=== PATIENT | male | born 1950 ===

== ENCOUNTER 2018-02-12 23:20 | Observation (INO) | payer MEDICARE, SELFPAY ==
[2018-02-12 23:31] VITALS: BMI 33.6
--- NOTE | 2018-02-12 23:37 | ED PDOC ---
Arrival/HPI - General Time Seen by Provider: 02/12/18 23:22 Historian: Patient - History of Present Illness Narrative History of Present Illness (Text): 02/12/18 23:33 Warren Trevino is a 67 year old male, whose past medical history includes diabetes, hypertension, liver cirrhosis, esophageal varices, and hyperlipidemia , who presents to the emergency department accompanied by spouse complaining upper abdominal discomfort after eating at 17:00 today. Patient reports associated nausea, vomiting, and back discomfort. Patient denies any fevers, chills, chest pain, shortness of breath, diarrhea, back pain, neck pain, urinary symptoms, headache, dizziness, or any other complaint. PMD: Dr. Powell Symptom Onset: Gradual Symptom Course: Unchanged Activities at Onset: Light Context: Home Past Medical History - Provider Review Nursing Documentation Reviewed: Yes - Cardiac Hx Hypertension: Yes - Pulmonary Hx Respiratory Disorders: No - Neurological Hx Neurological Disorder: No - HEENT Hx HEENT Disorder: No - Renal Hx Renal Disorder: No - Endocrine/Metabolic Hx Diabetes Mellitus Type 2: Yes - Hematological/Oncological Hx Blood Disorders: No - Integumentary Hx Dermatological Disorder: No - Musculoskeletal/Rheumatological Hx Musculoskeletal Disorders: No Hx Falls: No - Gastrointestinal Hx Gastrointestinal Disorders: Yes Hx Esophageal Varices: Yes Hx Gastritis: Yes Other/Comment: ? Liver Cirrhosis - Genitourinary/Gynecological Hx Genitourinary Disorders: No - Psychiatric Hx Psychophysiologic Disorder: No Hx Substance Use: No - Anesthesia Hx Anesthesia: No Family/Social History - Physician Review Nursing Documentation Reviewed: Yes Family/Social History: Unknown Family HX Smoking Status: Never Smoked Hx Alcohol Use: No Hx Substance Use: No Allergies/Home Meds Allergies/Adverse Reactions: Allergies No Known Allergies Allergy (Unverified 02/12/18 23:31) Home Medications: Home Meds Medication Instructions Recorded Confirmed Carvedilol 6.25 mg PO BID 08/01/14 08/01/14 Cholecalciferol [Vitamin D 1000 IU] 50,000 iu PO QWK 08/01/14 08/01/14 Clotrimazole 1% Cream [Lotrimin 1% 1 applic TOP BID 08/01/14 08/01/14 CREAM] Insulin Aspart [Novolog Flexpen] 15 units SC TID 08/01/14 08/01/14 Insulin Detemir [Levemir Flexpen] 30 unit SC HS 08/01/14 08/01/14 Lactulose 10 gm PO TID 08/01/14 08/01/14 Lidocaine 2 patch TP DAILY PRN 08/01/14 08/01/14 Linaclotide [Linzess] 145 mcg PO DAILY 08/01/14 08/01/14 Liraglutide [Victoza] 1.8 mg SC DAILY 08/01/14 08/01/14 Omeprazole 40 mg PO DAILY 08/01/14 08/01/14 Propranolol HCl 10 mg PO TID 08/01/14 08/01/14 Ramipril 10 mg PO DAILY 08/01/14 08/01/14 Rifaximin [Xifaxan] 550 mg PO BID 08/01/14 08/01/14 Spironolactone 25 mg PO DAILY 08/01/14 08/01/14 Review of Systems - Physician Review All systems were reviewed & negative as marked: Yes - Review of Systems Constitutional: Normal. absent: Fevers Eyes: Normal ENT: Normal Respiratory: Normal. absent: SOB, Cough Cardiovascular: Normal. absent: Chest Pain Gastrointestinal: Abdominal Pain, Nausea, Vomiting. absent: Diarrhea Genitourinary Male: Normal. absent: Dysuria, Frequency, Hematuria, Urinary Output Changes Musculoskeletal: Back Pain. absent: Neck Pain Skin: Normal. absent: Rash Neurological: Normal. absent: Headache, Dizziness Endocrine: Normal Hemo/Lymphatic: Normal Psychiatric: Normal Physical Exam Vital Signs Reviewed: Yes Vital Signs Temp Pulse Resp BP Pulse Ox 02/13/18 04:58 98.0 F 82 17 131/75 98 02/13/18 02:33 78 17 154/67 H 96 02/13/18 00:09 97.9 F 81 17 115/72 97 Temperature: Afebrile Blood Pressure: Normal Pulse: Regular Respiratory Rate: Normal Appearance: Positive for: Well-Appearing, Non-Toxic, Comfortable Pain Distress: None Mental Status: Positive for: Alert and Oriented X 3 - Systems Exam Head: Present: Atraumatic, Normocephalic Pupils: Present: PERRL Extroacular Muscles: Present: EOMI Conjunctiva: Present: Normal Mouth: Present: Moist Mucous Membranes Neck: Present: Normal Range of Motion. No: Meningeal Signs, MIDLINE TENDERNESS , Paraspinal Tenderness Respiratory/Chest: Present: Clear to Auscultation, Good Air Exchange. No: Respiratory Distress, Accessory Muscle Use Cardiovascular: Present: Regular Rate and Rhythm, Normal S1, S2. No: Murmurs Abdomen: Present: Tenderness (epigastric/ruq). No: Distention, Peritoneal Signs Back: Present: Normal Inspection. No: CVA Tenderness, Midline Tenderness, Paraspinal Tenderness Upper Extremity: Present: Normal Inspection. No: Cyanosis, Edema Lower Extremity: Present: Normal Inspection. No: Edema Neurological: Present: GCS=15, CN II-XII Intact, Speech Normal Skin: Present: Warm, Dry, Normal Color. No: Rashes Psychiatric: Present: Alert, Oriented x 3, Normal Insight, Normal Concentration Medical Decision Making ED Course and Treatment: 02/12/18 23:33 Impression: 67 year old male complaining of upper abdominal discomfort, nausea, vomiting, and back discomfort since 17:00 today. Plan: -- US Abdomen -- EKG -- CXR -- Labs, cardiac enzymes, lipase -- IV fluids -- Zofran -- Pepcid -- Reassess and disposition Progress Notes: Reviewed EKG, NSR at 70 bpm[address] Non-specific ST/T wave changes. 02/13/18 00:56 CXR reviewed, shows no acute processes. 02/13/18 02:18 US Abdomen shows: Limitations: Overlying bowel gas. Liver: Suboptimally visualized. Lobulated contour. Fatty infiltration. 3.3 x 3.0 x 3.9 cm hypo-to isoechoic mass. Additional masses not demonstrated likely due to suboptimal visualization. No intrahepatic ductal dilation. Gallbladder: No gallstones. No wall thickening. No pericholecystic fluid. No sonographic Khan's sign. Common bile duct: No dilatation. No stones. Pancreas: Obscured by overlying bowel gas. Kidneys: Normal echogenicity. No hydronephrosis. Spleen: No splenomegaly. Aorta: Not visualized. Inferior vena cava: Not visualized. Free fluid: No significant free fluid. Other findings: TIPS. IMPRESSION: 1. Liver mass, indeterminate but present on previous CT examination. Clinical correlation is needed. 2. Cirrhosis. 3. Incidental/non-acute findings are described above. CT Abdomen and Pelvis ordered. 02/13/18 03:33 CT Abdomen and Pelvis shows: Lung bases: Minimal atelectasis. Heart: Mild cardiomegaly. ABDOMEN: Liver: Lobulated contour. Few irregular hypodense lesions, grossly stable. Gallbladder and bile ducts: Calcified gallstones. No significant ductal dilation. Pancreas: No ductal dilation. No mass. Spleen: No splenomegaly. Adrenals: No mass. Kidneys and ureters: No mass. No hydronephrosis. Stomach and bowel: No definite mural thickening. Few minimally distended loops of small bowel, likely ileus. PELVIS: Appendix: Normal caliber. No inflammation. Bladder: Unremarkable. Reproductive: Unremarkable as visualized. ABDOMEN and PELVIS: Intraperitoneal space: No significant fluid collection. No free air. Bones/joints: Degenerative changes of spine. Chronic L5 pars defects. No acute fracture. Soft tissues: Mild gynecomastia. Vasculature: Minimal atherosclerotic disease. No aneurysm. Lymph nodes: No pathologically enlarged lymph nodes. Other findings: TIPS. Coils within left upper quadrant. IMPRESSION: 1. Cirrhosis with liver lesions, stable. 2. Cholelithiasis. 3. Incidental/non-acute findings are described above. 02/13/18 04:04 Case discussed with medical receptionist biller furnishings conservator and Dr. Camacho, who are aware and agrees with plan. Pt will go to [facility] observation for biliary colic and intractable abdominal pain under the hospitalist service. - Lab Interpretations Lab Results: 02/12/18 23:48 02/12/18 23:48 Lab Results 02/12/18 23:48: WBC 6.7, RBC 3.63, Hgb 12.9 L, Hct 35.2 L, MCV 97.0, MCH 35.5 H , MCHC 36.6, RDW 13.2, Plt Count 104 L, MPV 11.8 H 02/12/18 23:48: Sodium 138, Potassium 5.1 H, Chloride 105, Carbon Dioxide 23, Anion Gap 15, BUN 26 H, Creatinine 1.1, Est GFR ( Amer) > 60, Est GFR ( Non-Af Amer) > 60, Random Glucose 322 H* D, Calcium 9.1, Total Bilirubin 1.5 H, AST 64 H D, ALT 48, Alkaline Phosphatase 231 H, Lactate Dehydrogenase 658, Total Creatine Kinase 112, Troponin I < 0.01, Total Protein 7.5, Albumin 3.3, Globulin 4.1, Albumin/Globulin Ratio 0.8 L, Lipase 501 H 02/12/18 23:48: PT 13.8 H, INR 1.21 H, APTT 27.1 I have reviewed the lab results: Yes - RAD Interpretation Radiology Orders: 02/12/18 23:33 CHEST PORTABLE [RAD] Stat 02/12/18 23:38 ABDOMEN COMPLETE [US] Stat 02/13/18 02:21 ABD & PELVIS IV CONTRAST ONLY [CT] Stat Restrike Hammer Operator: ED Physician, Radiologist - EKG Interpretation Interpreted by ED Physician: Yes Type: 12 lead EKG - Medication Orders Current Medication Orders: Discontinued Medications Famotidine (Pepcid) 20 mg IVP STAT STA Stop: 02/12/18 23:35 Last Admin: 02/12/18 23:53 Dose: 20 mg IVP Administration Document 02/12/18 23:53 IT (Rec: 02/12/18 23:53 [place] [facility] [id number] Charges for Administration # of IVP Administrations 1 Heparin Sodium (Porcine) (Heparin) 5,000 units SC Q12 JOSE R PRN Reason: Protocol Last Admin: 02/13/18 10:44 Dose: 5,000 units Subcutaneous Administrations Document 02/13/18 10:44 MANIL (Rec: 02/13/18 10:44 MANIL [facility] [id number] Injection Site MAR Injection Site Umbilicus Charges for Administration # of Subcutaneous Administrations 1 Sodium Chloride (Sodium Chloride 0.9%) 1,000 mls @ 100 mls/hr IV .Q10H JOSE R Last Admin: 02/12/18 23:53 Dose: 100 mls/hr eMAR Start Stop Document 02/12/18 23:53 IT (Rec: 02/12/18 23:53 IT [facility] [id number] Intravenous Solution Start Date 02/12/18 Start Time 23:53 Sodium Chloride (Sodium Chloride 0.45%) 1,000 mls @ 60 mls/hr IV .[id number] JOSE R Last Admin: 02/13/18 04:49 Dose: 60 mls/hr eMAR Start Stop Document 02/13/18 04:49 IT (Rec: 02/13/18 04:49 IT [facility] [id number] Intravenous Solution Start Date 02/13/18 Start Time 04:49 Insulin Human Regular (Humulin R High) 0 units SC Q6 JOSE R PRN Reason: Protocol Last Admin: 02/13/18 12:23 Dose: 2 units MAR Blood Glucose Document 02/13/18 12:23 MANIL (Rec: 02/13/18 12:23 MANIL [id number]) Blood Glucose Finger Stick Blood Glucose (70-120) 190 Subcutaneous Administrations Document 02/13/18 12:23 MANIL (Rec: 02/13/18 12:23 MANIL [id number]) Injection Site MAR Injection Site Right Arm Charges for Administration # of Subcutaneous Administrations 1 Morphine Sulfate (Morphine) 2 mg IVP STAT STA Stop: 02/13/18 00:35 Last Admin: 02/13/18 00:42 Dose: 2 mg IVP Administration Document 02/13/18 00:42 IT (Rec: 02/13/18 00:42 IT [facility] [id number] Charges for Administration # of IVP Administrations 1 Morphine Sulfate (Morphine) 4 mg IVP STAT STA Stop: 02/13/18 03:52 Last Admin: 02/13/18 04:49 Dose: 4 mg MAR Pain Assessment Document 02/13/18 04:49 IT (Rec: 02/13/18 04:49 IT [facility] [id number] Pain Reassessment Is this a pain reassessment? No Sleep Is patient sleeping during reassessment? No Presence of Pain Presence of Pain Yes Pain Scale Used Pain Scale Used Numeric Location Upper or Lower Lower Pain Location Body Site Abdomen IVP Administration Document 02/13/18 04:49 IT (Rec: 02/13/18 04:49 IT [facility] [id number]) Charges for Administration # of IVP Administrations 1 Morphine Sulfate (Morphine) 2 mg IVP Q4H PRN PRN Reason: Pain, severe (8-10) Morphine Sulfate (Morphine) 1 mg IVP Q6H PRN PRN Reason: Pain, moderate (4-7) Ondansetron HCl (Zofran Inj) 4 mg IVP ONCE ONE Stop: 02/12/18 23:35 Last Admin: 02/12/18 23:53 Dose: 4 mg IVP Administration Document 02/12/18 23:53 IT (Rec: 02/12/18 23:53 IT [facility] [id number]) Charges for Administration # of IVP Administrations 1 Ondansetron HCl (Zofran Inj) 4 mg IVP Q4H PRN PRN Reason: Nausea/Vomiting Pantoprazole Sodium (Protonix Inj) 40 mg IVP DAILY JOSE R Last Admin: 02/13/18 10:45 Dose: 40 mg IVP Administration Document 02/13/18 10:45 MANIL (Rec: 02/13/18 10:45 MANIL [facility] [id number] Charges for Administration # of IVP Administrations 1 - Scribe Statement The provider has reviewed the documentation as recorded by the Scribe Megan Delgado Provider Scribe Attestation: All medical record entries made by the Scribe were at my direction and personally dictated by me. I have reviewed the chart and agree that the record accurately reflects my personal performance of the history, physical exam, medical decision making, and the department course for this patient. I have also personally directed, reviewed, and agree with the discharge instructions and disposition. Disposition/Present on Arrival - Present on Arrival Any Indicators Present on Arrival: No History of DVT/PE: No History of Uncontrolled Diabetes: Yes Urinary Catheter: No History of Decub. Ulcer: Yes History Surgical Site Infection Following: None - Disposition Have Diagnosis and Disposition been Completed?: Yes Diagnosis: Abdominal pain, Cholelithiasis Disposition: HOSPITALIZED Disposition Time: 04:18 Patient Plan: Observation Condition: STABLE
[2018-02-12] MEDS ORDERED: Sodium Chloride 0.9% 1,000 ML IV SCH (23:45)
[2018-02-13 00:24] LABS: HEMOGLOBIN 12.9 g/dL (14.0-18.0); MEAN CORPUSCULAR HEMOGLOBIN 35.5 pg (25.0-35.0); MEAN CORPUSCULAR HGB CONC 36.6 g/dl (31.0-37.0); MEAN PLATELET VOLUME 11.8 fl (7.0-11.0); RBC 3.63 10^6/uL (3.5-6.1); RED CELL DISTRIBUTION WIDTH 13.2 % (11.5-14.5); WHITE BLOOD COUNT 6.7 10^3/ul (4.5-11.0)
[2018-02-13 00:33] LABS: INR 1.21 (0.93-1.08); PARTIAL THROMBOPLASTIN TIME 27.1 Seconds (25.1-36.5); PROTHROMBIN TIME 13.8 SECONDS (9.4-12.5)
[2018-02-13] MEDS ORDERED: Morphine 2 mg/2 mL syringe IVP STA (00:34)
[2018-02-13 00:36] LABS: ALB/GLOB RATIO 0.8 (1.1-1.8); ALBUMIN 3.3 g/dL (3.0-4.8); ALT/SGPT 48 U/L (7-56); AST/SGOT 64 U/L (17-59); BLOOD UREA NITROGEN 26 mg/dL (7-21); CALCIUM 9.1 mg/dL (8.4-10.5); GFR AFRICAN-AMERICAN > 60; GFR NON-AFRICAN AMERICAN > 60; LIPASE 501 U/L (23-300)
[2018-02-13 00:38] LABS: TROPONIN I < 0.01 ng/mL
--- NOTE | 2018-02-13 02:17 | US ---
EXAM: US Abdomen Complete CLINICAL HISTORY: 67 years old, male; Pain; Abdominal pain; Generalized; Additional info: Upper abdominal pain TECHNIQUE: Real-time ultrasound of the abdomen (complete) with image documentation. COMPARISON: CT - LIVER PROTOCOL TRIPLE PHASE 2018-01-02 10:43 FINDINGS: Limitations: Overlying bowel gas. Liver: Suboptimally visualized. Lobulated contour. Fatty infiltration. 3.3 x 3.0 x 3.9 cm hypo-to isoechoic mass. Additional masses not demonstrated likely due to suboptimal visualization. No intrahepatic ductal dilation. Gallbladder: No gallstones. No wall thickening. No pericholecystic fluid. No sonographic Khan's sign. Common bile duct: No dilatation. No stones. Pancreas: Obscured by overlying bowel gas. Kidneys: Normal echogenicity. No hydronephrosis. Spleen: No splenomegaly. Aorta: Not visualized. Inferior vena cava: Not visualized. Free fluid: No significant free fluid. Other findings: TIPS. IMPRESSION: 1. Liver mass, indeterminate but present on previous CT examination. Clinical correlation is needed. 2. Cirrhosis. 3. Incidental/non-acute findings are described above.
[2018-02-13] MEDS ORDERED: Iohexol 350 MG/100 ML VIAL ONE (02:52)
--- NOTE | 2018-02-13 03:31 | CT ---
EXAM: CT Abdomen and Pelvis With Intravenous Contrast CLINICAL HISTORY: 67 years old, male; Pain; Abdominal pain TECHNIQUE: Axial computed tomography images of the abdomen and pelvis with intravenous contrast. All CT scans at this facility use one or more dose reduction techniques, viz.: automated exposure control; ma/kV adjustment per patient size (including targeted exams where dose is matched to indication; i.e. head); or iterative reconstruction technique. Coronal and sagittal reformatted images were created and reviewed. CONTRAST: 100 mL of OMNIPAQUE 350 administered intravenously. COMPARISON: CT - LIVER PROTOCOL TRIPLE PHASE 2018-01-02 10:43 FINDINGS: Lung bases: Minimal atelectasis. Heart: Mild cardiomegaly. ABDOMEN: Liver: Lobulated contour. Few irregular hypodense lesions, grossly stable. Gallbladder and bile ducts: Calcified gallstones. No significant ductal dilation. Pancreas: No ductal dilation. No mass. Spleen: No splenomegaly. Adrenals: No mass. Kidneys and ureters: No mass. No hydronephrosis. Stomach and bowel: No definite mural thickening. Few minimally distended loops of small bowel, likely ileus. PELVIS: Appendix: Normal caliber. No inflammation. Bladder: Unremarkable. Reproductive: Unremarkable as visualized. ABDOMEN and PELVIS: Intraperitoneal space: No significant fluid collection. No free air. Bones/joints: Degenerative changes of spine. Chronic L5 pars defects. No acute fracture. Soft tissues: Mild gynecomastia. Vasculature: Minimal atherosclerotic disease. No aneurysm. Lymph nodes: No pathologically enlarged lymph nodes. Other findings: TIPS. Coils within left upper quadrant. IMPRESSION: 1. Cirrhosis with liver lesions, stable. 2. Cholelithiasis. 3. Incidental/non-acute findings are described above.
[2018-02-13] MEDS ORDERED: Morphine 4 mg/ml ISec IVP STA (03:51)
[2018-02-13] MEDS ORDERED: Morphine 2 mg/2 mL syringe IVP PRN ×2 (04:09)
[2018-02-13] MEDS ORDERED: Sodium Chloride 0.45% 1,000 ML IV SCH (04:15)
[2018-02-13 04:59] VITALS: O2SAT 98
[2018-02-13 06:12] VITALS: BP 123/76; PULSE 86; RESP 20; TEMP 96.7
--- NOTE | 2018-02-13 06:21 | CP.PCM.CON ---
History of Present Illness - History of Present Illness History of Present Illness: Surgery Consult note. Dr. Ruffin 67yo M with PMHx of Liver Cirrhosis, portal hypertension s/p TIPS 8yrs ago, DM, HTN, HLD here for evaluation of abdominal pain. Pain located in the epigastric region, described as sharp, intermittent, gassy pain. Radiates to the mid back. Denies ever having similar symptoms in the past. Pain started 2 hours after eating strawberries and fruits, started at 5PM yesterday. Pain associated with nausea and vomiting x3 episodes, non-bilious, non-bloody. Denies any fevers or chills. Last BM yesterday, normal caliber, no blood, non-melanotic. Denies any recent weight loss. No urinary changes. No CP/SOB. No sick contacts. PMHx: Cirrhosis, Portal Hypertension s/p TIPS, DM, HTN, HLD PSHx: TIPS 8 years ago at [facility] Hx: non-contributory Social Hx: Denies current ETOH use, prior abuse, sober 10years. Denies tobacco use. Denies illicit drugs NKDA Review of Systems - Review of Systems All systems: reviewed and no additional remarkable complaints except - Constitutional Constitutional: absent: Chills, Fever - Cardiovascular Cardiovascular: absent: Chest Pain, Dyspnea - Respiratory Respiratory: absent: Dyspnea - Gastrointestinal Gastrointestinal: Abdominal Pain, Nausea, Vomiting. absent: Belching, Diarrhea , Dyspepsia, Hematemesis, Hematochezia, Loose Stools, Melena - Genitourinary Genitourinary: absent: Dysuria - Musculoskeletal Musculoskeletal: Back Pain Past Patient History - Past Medical History & Family History Past Medical History?: Yes Past Family History: Reviewed and not pertinent - Past Social History Smoking Status: Never Smoked Alcohol: None Drugs: Denies - CARDIAC Hx Cardiac Disorders: Yes Hx Hypertension: Yes - PULMONARY Hx Respiratory Disorders: No - NEUROLOGICAL Hx Neurological Disorder: No - HEENT Hx HEENT Problems: No - RENAL Hx Chronic Kidney Disease: No - ENDOCRINE/METABOLIC Hx Endocrine Disorders: Yes Hx Diabetes Mellitus Type 2: Yes - HEMATOLOGICAL/ONCOLOGICAL Hx Blood Disorders: No - INTEGUMENTARY Hx Dermatological Problems: No - MUSCULOSKELETAL/RHEUMATOLOGICAL Hx Musculoskeletal Disorders: Yes Hx Back Pain: Yes Hx Falls: No - GASTROINTESTINAL Hx Gastrointestinal Disorders: Yes Other/Comment: Liver cirrhosis with TIPS. Esophageal varices - GENITOURINARY/GYNECOLOGICAL Hx Genitourinary Disorders: No - PSYCHIATRIC Hx Psychophysiologic Disorder: No Hx Substance Use: No - SURGICAL HISTORY Hx Surgeries: Yes Other/Comment: TIPS - ANESTHESIA Hx Anesthesia: No Meds Allergies/Adverse Reactions: Allergies Allergy/AdvReac Type Severity Reaction Status Date / Time No Known Allergies Allergy Unverified 02/12/18 23:31 - Medications Medications: Current Medications Heparin Sodium (Porcine) (Heparin) 5,000 units SC Q12 JOSE R PRN Reason: Protocol Sodium Chloride (Sodium Chloride 0.45%) 1,000 mls @ 60 mls/hr IV .[id number] [facility] Last Admin: 02/13/18 04:49 Dose: 60 mls/hr Insulin Human Regular (Humulin R High) 0 units SC Q6 JOSE R PRN Reason: Protocol Morphine Sulfate (Morphine) 2 mg IVP Q4H PRN PRN Reason: Pain, severe (8-10) Morphine Sulfate (Morphine) 1 mg IVP Q6H PRN PRN Reason: Pain, moderate (4-7) Ondansetron HCl (Zofran Inj) 4 mg IVP Q4H PRN PRN Reason: Nausea/Vomiting Pantoprazole Sodium (Protonix Inj) 40 mg IVP DAILY [facility] Physical Exam - Constitutional Appears: Well, Non-toxic, No Acute Distress - Head Exam Head Exam: ATRAUMATIC, NORMAL INSPECTION, NORMOCEPHALIC - Eye Exam Eye Exam: EOMI, Normal appearance. absent: Scleral icterus - ENT Exam ENT Exam: Mucous Membranes Moist - Neck Exam Neck exam: Positive for: Normal Inspection - Respiratory Exam Respiratory Exam: NORMAL BREATHING PATTERN. absent: Accessory Muscle Use, Respiratory Distress - Cardiovascular Exam Cardiovascular Exam: RRR. absent: JVD - GI/Abdominal Exam GI & Abdominal Exam: Soft. absent: Distended, Firm, Guarding, Rebound, Rigid, Tenderness Additional comments: soft, non-tender, non-distended. No rebound. No guarding. Negative Khan's sign. - Extremities Exam Extremities exam: Positive for: normal inspection. Negative for: calf tenderness - Back Exam Back exam: NORMAL INSPECTION - Neurological Exam Neurological exam: Alert, Oriented x3 - Psychiatric Exam Psychiatric exam: Normal Affect, Normal Mood - Skin Skin Exam: Dry, Intact, Normal Color, Warm Results - Vital Signs Recent Vital Signs: Last Vital Signs Temp 96.7 F L 02/13/18 05:36 Pulse 86 02/13/18 05:36 Resp 20 02/13/18 05:36 BP 123/76 02/13/18 05:36 Pulse Ox 98 02/13/18 04:58 - Labs Result Diagrams: 02/13/18 06:30 02/13/18 06:30 Labs: Laboratory Results - last 24 hr 02/13/18 05:29 POC Glucose (mg/dL) 159 H Assessment & Plan - Assessment and Plan (Free Text) Assessment: 67yo M with epigastric abdominal pain. - Elevated LFTs; Lipase 500 - CT Abd/Pelvis: calcified gallstones. liver cirrhosis with associated lesion ( stable from previous studies) - US Abd: no evidence of gallstones; No CBD stones noted. No wall thickening. Plan: - f/u GI recs - f/u GGT to r/o biliary pathology - Advance diet as tolerated - No acute plans for surgical intervention warranted at this time Further recs as per Dr. Augustin Iniguez PGY1 surgery pager: [phone]
--- NOTE | 2018-02-13 06:27 | CP.PCM.HP ---
History of Present Illness - History of Present Illness History of Present Illness: Mr. rTevino is a 67 year old male with a past medical history significant for chronic liver disease secondary to alcohol abuse s/p TIPS, liver cirrhosis, IDDM2, HTN and HLD who presents with epigastric cramping that began at 1700 yesterday. Patient reports that he was resting at home when a constant crampy epigastric pain, rated 6/10, with radiation to his back began. He also endorses intermittent nausea with two episodes of NBNB vomiting associated with this pain. He denies ever having this pain in the past. He also denies any correlation to PO intake, body position or bowel movements. He is usually seen at [facility] by a GI doctor there. He denies any fever, chills, headache, changes in his vision, dizziness, dysphagia, chest pain, palpitations, SOB, cough, wheezing, sputum production, diarrhea, constipation, melena, hematochezia , hematemesis, changes in urine output, skin changes, or any numbness/tingling/ weakness of any extremity. PMH: As stated above PSH: TIPS ~10 years ago Family History: Non-contributory Social History: Denies any current tobacco, alcohol or illicit drug use; Lives in [place] Allergies: NKDA Home Medications: As stated above Present on Admission - Present on Admission Any Indicators Present on Admission: No Review of Systems - Review of Systems Review of Systems: As stated in HPI, otherwise negative Past Patient History - Infectious Disease Hx of Infectious Diseases: None - Past Medical History & Family History Past Medical History?: Yes - Past Social History Smoking Status: Never Smoked - CARDIAC Hx Cardiac Disorders: Yes Hx Hypertension: Yes - PULMONARY Hx Respiratory Disorders: No - NEUROLOGICAL Hx Neurological Disorder: No - HEENT Hx HEENT Problems: No - RENAL Hx Chronic Kidney Disease: No - ENDOCRINE/METABOLIC Hx Endocrine Disorders: Yes Hx Diabetes Mellitus Type 2: Yes - HEMATOLOGICAL/ONCOLOGICAL Hx Blood Disorders: No - INTEGUMENTARY Hx Dermatological Problems: No - MUSCULOSKELETAL/RHEUMATOLOGICAL Hx Musculoskeletal Disorders: Yes Hx Back Pain: Yes Hx Falls: No - GASTROINTESTINAL Hx Gastrointestinal Disorders: Yes Other/Comment: Liver cirrhosis with TIPS. Esophageal varices - GENITOURINARY/GYNECOLOGICAL Hx Genitourinary Disorders: No - PSYCHIATRIC Hx Psychophysiologic Disorder: No Hx Substance Use: No - SURGICAL HISTORY Hx Surgeries: Yes Other/Comment: TIPS - ANESTHESIA Hx Anesthesia: No Meds Allergies/Adverse Reactions: Allergies Allergy/AdvReac Type Severity Reaction Status Date / Time No Known Allergies Allergy Unverified 02/12/18 23:31 Physical Exam - Constitutional Appears: Non-toxic, No Acute Distress - Head Exam Head Exam: ATRAUMATIC, NORMOCEPHALIC - Eye Exam Eye Exam: EOMI, Normal appearance, PERRL. absent: Conjunctival injection, Nystagmus, Periorbital swelling, Periorbital tenderness, Scleral icterus Pupil Exam: NORMAL ACCOMODATION, PERRL. absent: Fixed, Irregular, Miosis, Mydriatic, Unequal - ENT Exam ENT Exam: Mucous Membranes Moist, Normal Exam, Normal Oropharynx - Neck Exam Neck exam: Positive for: Full Rom, Normal Inspection. Negative for: Lymphadenopathy, Meningismus, Tenderness, Thyromegaly - Respiratory Exam Respiratory Exam: Clear to Auscultation Bilateral, NORMAL BREATHING PATTERN. absent: Accessory Muscle Use, Chest Wall Tenderness, Decreased Breath Sounds, Prolonged Expiratory Phase, Rales, Rhonchi, Wheezes, Respiratory Distress, Stridor - Cardiovascular Exam Cardiovascular Exam: REGULAR RHYTHM, RRR, +S1, +S2. absent: Bradycardia, Tachycardia, Clicks, Diastolic murmur, Gallop, Irregular Rhythm, JVD, Rubs, +S4 , Systolic Murmur - GI/Abdominal Exam GI & Abdominal Exam: Normal Bowel Sounds, Soft, Tenderness (TTP to epigastric region). absent: Bruit, Diminished Bowel Sounds, Distended, Firm, Guarding, Hernia, Hyperactive Bowel Sounds, Hypoactive Bowel Sounds, Mass, Organomegaly, Pulsatile Mass, Rebound, Rigid - Extremities Exam Extremities exam: Positive for: full ROM, normal capillary refill, normal inspection, pedal pulses present. Negative for: calf tenderness, joint swelling , pedal edema, tenderness - Back Exam Back exam: NORMAL INSPECTION - Neurological Exam Neurological exam: Alert, CN II-XII Intact, Oriented x3 - Psychiatric Exam Psychiatric exam: Normal Affect, Normal Mood - Skin Skin Exam: Dry, Intact, Normal Color, Warm Results - Vital Signs Recent Vital Signs: Last Vital Signs Temp 96.7 F L 02/13/18 05:36 Pulse 86 02/13/18 05:36 Resp 20 02/13/18 05:36 BP 123/76 02/13/18 05:36 Pulse Ox 98 02/13/18 04:58 - Labs Result Diagrams: 02/13/18 06:30 02/12/18 23:48 Labs: Laboratory Results - last 24 hr 02/13/18 05:29 POC Glucose (mg/dL) 159 H Assessment & Plan - Assessment and Plan (Free Text) Assessment: 67 year old male with a past medical history significant for chronic liver disease secondary to alcohol abuse s/p TIPS, liver cirrhosis, IDDM2, HTN and HLD who presents with epigastric cramping that began at 1700 yesterday. Patient was found to have cholelithiasis on CT abdomen/pelvis and abdominal ultrasound. He was also found to have an elevated lipase. Plan: 1. Cholelithiasis -CT Abdomen/Pelvis and Abdominal U/S showed cholelithiasis and stable liver cirrhosis without any dilation of the CBD -NPO Diet -Half NS at 60mls/hr -Morphine 1mg IVP Q6 PRN and 2mg Q4 PRN for moderate and severe pain, respectively -Zofran PRN for N/V -GI and Surgery consulted, all recommendations appreciated 2. History of IDDM2 -SSI-High and Accuchecks Q6 GI Prophylaxis: Protonix DVT Prophylaxis: Heparin Patient seen and case discussed with attending, Dr. Laura Camacho. - Date & Time Date: 02/13/18 Time: 06:29
[2018-02-13 06:41] LABS: BASO # 0.02 K/mm3 (0.0-2.0); BASO % 0.3 % (0.0-3.0); EOS # 0.1 (0.0-0.7); EOS % 1.4 % (1.5-5.0); GRAN # 5.56 (1.4-6.5); HEMOGLOBIN 12.7 g/dL (14.0-18.0); LYMPH # 1.3 (1.2-3.4); LYMPH % 16.4 % (22.0-35.0); MEAN CELL VOLUME 96.7 fl (80.0-105.0); MEAN CORPUSCULAR HEMOGLOBIN 34.6 pg (25.0-35.0); MEAN CORPUSCULAR HGB CONC 35.8 g/dl (31.0-37.0); MEAN PLATELET VOLUME 11.5 fl (7.0-11.0); MONO # 0.9 (0.1-0.6); MONO % 10.9 % (1.0-6.0); RBC 3.67 10^6/uL (3.5-6.1); RED CELL DISTRIBUTION WIDTH 13.2 % (11.5-14.5); WHITE BLOOD COUNT 7.8 10^3/ul (4.5-11.0)
[2018-02-13 07:03] LABS: ALB/GLOB RATIO 0.7 (1.1-1.8); ALT/SGPT 42 U/L (7-56); AST/SGOT 55 U/L (17-59); BLOOD UREA NITROGEN 24 mg/dL (7-21); CALCIUM 8.8 mg/dL (8.4-10.5); GFR AFRICAN-AMERICAN > 60; GFR NON-AFRICAN AMERICAN > 60
[2018-02-13] MEDS: Insulin Reg-HIGH-Coverage SC SCH ×2 (07:47→12:23)
--- NOTE | 2018-02-13 08:37 | CP.PCM.CON ---
History of Present Illness - History of Present Illness History of Present Illness: Asked by hospitalist team for a GI consultation on this patient. 67 year old male with history of DM, HTN, ETOH cirrhosis s/p TIPS who presents to hospital with complaint of sudden onset abdominal pain which began at 5 pm yesterday. Prior to this he was in usual state of health. He describes sharp epigastric abdominal pain, 8/10 intensity which radiated to back and associated with nausea. There did not seem to be any association with food consumption. He otherwise denies vomiting, fever/chills, weight loss, rectal bleeding, diarrhea , sick contacts, or change in bowel habits. He had an EGD/colonoscopy 1 year ago at [facility] [place] which were normal as per patient. He has been following with private hepatolgist Dr. Bowman for known cirrhosis with hepatic lesions. Social history: quit ETOH 10 years ago, non-smoker Family history: reviewed, patient denies history of GI malignancies Review of Systems - Review of Systems Review of Systems: - All other comprehensive 12 point review of systems performed, negative - Cardiovascular Cardiovascular: absent: Acrocyanosis, Chest Pain, Chest Pain at Rest, Chest Pain with Activity, Claudication, Diaphoresis, Dyspnea, Dyspnea on Exertion, Edema, Irregular Heart Rhythm, Pain Radiating to Arm/Neck/Jaw, Leg Edema, Leg Ulcers, Lightheadedness, Orthopnea, Palpitations, Paroxysmal Nocturnal Dyspnea, Pedal Edema, Radiating Pain, Rapid Heart Rate, Slow Heart Rate, Syncope, Other - Respiratory Respiratory: absent: Cough, Dyspnea, Hemoptysis, Dyspnea on Exertion, Wheezing, Snoring, Stridor, Pain on Inspiration, Chest Congestion, Excessive Mucous Production, Change in Mucous Color, Pain with Coughing, Other - Gastrointestinal Gastrointestinal: Abdominal Pain - Musculoskeletal Musculoskeletal: absent: Abnormal Gait, Arthralgias, Atrophy, Back Pain, Deformity, Joint Swelling, Limited Range of Motion, Loss of Height, Muscle Cramps, Muscle Weakness, Myalgias, Neck Pain, Numbness, Radiating Pain into Limb , Stiffness, Tingling, Other - Neurological Neurological: absent: Abnormal Gait, Abnormal Hearing, Abnormal Movements, Abnormal Speech, Behavioral Changes, Burning Sensations, Confusion, Convulsions , Disequilibrium, Dizziness, Numbness, Focal Weakness, Frequent Falls, Headaches , Lack of Coordination, Loss of Vision, Memory Loss, Paresthesias, Radicular Pain, Restless Legs, Sensory Deficit, Syncope, Tingling, Tremor, Vertigo, Weakness, Other Visual Disturbances, Other Past Patient History - Infectious Disease Hx of Infectious Diseases: None - Past Medical History & Family History Past Medical History?: Yes - Past Social History Smoking Status: Never Smoked - CARDIAC Hx Cardiac Disorders: Yes Hx Hypertension: Yes - PULMONARY Hx Respiratory Disorders: No - NEUROLOGICAL Hx Neurological Disorder: No - HEENT Hx HEENT Problems: No - RENAL Hx Chronic Kidney Disease: No - ENDOCRINE/METABOLIC Hx Endocrine Disorders: Yes Hx Diabetes Mellitus Type 2: Yes - HEMATOLOGICAL/ONCOLOGICAL Hx Blood Disorders: No - INTEGUMENTARY Hx Dermatological Problems: No - MUSCULOSKELETAL/RHEUMATOLOGICAL Hx Musculoskeletal Disorders: Yes Hx Back Pain: Yes Hx Falls: No - GASTROINTESTINAL Hx Gastrointestinal Disorders: Yes Other/Comment: Liver cirrhosis with TIPS. Esophageal varices - GENITOURINARY/GYNECOLOGICAL Hx Genitourinary Disorders: No - PSYCHIATRIC Hx Psychophysiologic Disorder: No Hx Substance Use: No - SURGICAL HISTORY Hx Surgeries: Yes Other/Comment: TIPS - ANESTHESIA Hx Anesthesia: No Meds Allergies/Adverse Reactions: Allergies Allergy/AdvReac Type Severity Reaction Status Date / Time No Known Allergies Allergy Unverified 02/12/18 23:31 - Medications Medications: Current Medications Heparin Sodium (Porcine) (Heparin) 5,000 units SC Q12 [facility] PRN Reason: Protocol Sodium Chloride (Sodium Chloride 0.45%) 1,000 mls @ 60 mls/hr IV [id number] [facility] Last Admin: 02/13/18 04:49 Dose: 60 mls/hr Insulin Human Regular (Humulin R High) 0 units SC Q6 JOSE R PRN Reason: Protocol Last Admin: 02/13/18 07:47 Dose: 2 units Morphine Sulfate (Morphine) 2 mg IVP Q4H PRN PRN Reason: Pain, severe (8-10) Morphine Sulfate (Morphine) 1 mg IVP Q6H PRN PRN Reason: Pain, moderate (4-7) Ondansetron HCl (Zofran Inj) 4 mg IVP Q4H PRN PRN Reason: Nausea/Vomiting Pantoprazole Sodium (Protonix Inj) 40 mg IVP DAILY [facility] Physical Exam - Constitutional Appears: Non-toxic, No Acute Distress - Head Exam Head Exam: NORMAL INSPECTION - Eye Exam Eye Exam: EOMI, Normal appearance - ENT Exam ENT Exam: Mucous Membranes Moist - Respiratory Exam Respiratory Exam: Clear to Auscultation Bilateral - Cardiovascular Exam Cardiovascular Exam: REGULAR RHYTHM, +S1, +S2 - GI/Abdominal Exam GI & Abdominal Exam: Normal Bowel Sounds, Soft Additional comments: non tender to palpation in four quadrants no palpable hepato/splenomegaly - Extremities Exam Extremities exam: Positive for: normal inspection - Neurological Exam Neurological exam: Alert, CN II-XII Intact, Oriented x3, Reflexes Normal - Psychiatric Exam Psychiatric exam: Normal Affect, Normal Mood - Skin Skin Exam: Dry, Intact, Normal Color, Warm Results - Vital Signs Recent Vital Signs: Last Vital Signs Temp 96.7 F L 02/13/18 06:00 Pulse 86 02/13/18 06:00 Resp 20 02/13/18 06:00 BP 123/76 02/13/18 06:00 Pulse Ox 98 02/13/18 06:00 - Labs Result Diagrams: 02/13/18 06:30 02/13/18 06:30 Labs: Laboratory Results - last 24 hr 02/13/18 02/13/18 02/13/18 05:29 06:30 06:30 WBC 7.8 RBC 3.67 Hgb 12.7 L Hct 35.5 L MCV 96.7 MCH 34.6 MCHC 35.8 RDW 13.2 Plt Count 100 L MPV 11.5 H Gran % 71.0 H Lymph % (Auto) 16.4 L [place] % (Auto) 10.9 H Eos % (Auto) 1.4 L Baso % (Auto) 0.3 Gran # 5.56 Lymph # (Auto) 1.3 [place] # (Auto) 0.9 H Eos # (Auto) 0.1 Baso # (Auto) 0.02 Sodium 141 Potassium 4.4 Chloride 108 H Carbon Dioxide 24 Anion Gap 14 BUN 24 H Creatinine 1.0 Est GFR ( Amer) > 60 Est GFR (Non-Af Amer) > 60 POC Glucose (mg/dL) 159 H Random Glucose 168 H Calcium 8.8 Total Bilirubin 1.6 H AST 55 ALT 42 Alkaline Phosphatase 201 H Total Protein 7.0 Albumin 3.0 Globulin 4.1 Albumin/Globulin Ratio 0.7 L Assessment & Plan - Assessment and Plan (Free Text) Assessment: DM HTN Cirrhosis s/p TIPS - prior ETOH abuse, sober past [address] / US imaging reviewed by me showing calcified cholelithiasis, normal caliber CBD, stable hepatic necrotic lesions compared to triple phase liver CT from last month Plan: - Advance diet to low sodium diabetic as tolerated - LFTs stable, continue to monitor - Admission MELD 10, patient to follow up with Dr. Bowman (hepatology) after hospital discharge - Continue with oral H2 alise therapy - Follow up surgical recommendations - From GI standpoint ok to discharge patient home with subsequent outpatient follow up. No planned GI intervention, will sign off case. Please reconsult as necessary, thank you.
--- NOTE | 2018-02-13 09:41 | CARD ---
APPROVED REPORT EKG Measurement Heart [id number] <Conclusion> Normal sinus rhythm with sinus arrhythmia Possible Lateral infarct, age undetermined Abnormal ECG
--- NOTE | 2018-02-13 09:50 | RAD ---
HISTORY: abdominal pain COMPARISON: No prior. FINDINGS: LUNGS: Poor inspiration with low lung volumes, crowded bronchovascular markings and mild bibasilar atelectasis. . PLEURA: No significant pleural effusion identified, no pneumothorax apparent. CARDIOVASCULAR: Borderline/ mild cardiomegaly. OSSEOUS STRUCTURES: No significant abnormalities. VISUALIZED UPPER ABDOMEN: Normal. OTHER FINDINGS: None. IMPRESSION: Poor inspiration with low lung volumes, crowded bronchovascular markings and mild bibasilar atelectasis.
--- NOTE | 2018-02-13 14:24 | CP.PCM.DIS ---
<Luz Red - Last Filed: 02/13/18 15:38> Provider - Provider Date of Admission: 02/13/18 04:16 Attending physician: Mohamud Jorgensen MD Primary care physician: Poli Powell Jr, MD Time Spent in preparation of Discharge (in minutes): 40 Hospital Course - Lab Results Lab Results: Most Recent Lab Values WBC 7.8 10^3/ul (4.5-11.0) 02/13/18 06:30 RBC 3.67 10^6/uL (3.5-6.1) 02/13/18 06:30 Hgb 12.7 g/dL (14.0-18.0) L 02/13/18 06:30 Hct 35.5 % (42.0-52.0) L 02/13/18 06:30 MCV 96.7 fl (80.0-105.0) 02/13/18 06:30 MCH 34.6 pg (25.0-35.0) 02/13/18 06:30 MCHC 35.8 g/dl (31.0-37.0) 02/13/18 06:30 RDW 13.2 % (11.5-14.5) 02/13/18 06:30 Plt Count 100 10^3/uL (120.0-450.0) L 02/13/18 06:30 MPV 11.5 fl (7.0-11.0) H 02/13/18 06:30 Gran % 71.0 % (50.0-68.0) H 02/13/18 06:30 Lymph % (Auto) 16.4 % (22.0-35.0) L 02/13/18 06:30 [place] % (Auto) 10.9 % (1.0-6.0) H 02/13/18 06:30 Eos % (Auto) 1.4 % (1.5-5.0) L 02/13/18 06:30 Baso % (Auto) 0.3 % (0.0-3.0) 02/13/18 06:30 Gran # 5.56 (1.4-6.5) 02/13/18 06:30 Lymph # (Auto) 1.3 (1.2-3.4) 05/28/18 06:30 [place] # (Auto) 0.9 (0.1-0.6) H 02/13/18 06:30 Eos # (Auto) 0.1 (0.0-0.7) 02/13/18 06:30 Baso # (Auto) 0.02 K/mm3 (0.0-2.0) 02/13/18 06:30 PT 13.8 SECONDS (9.4-12.5) H 02/12/18 23:48 INR 1.21 (0.93-1.08) H 02/12/18 23:48 APTT 27.1 Seconds (25.1-36.5) 02/12/18 23:48 Sodium 141 mmol/L (132-148) 02/13/18 06:30 Potassium 4.4 mmol/L (3.6-5.0) 02/13/18 06:30 Chloride 108 mmol/L (98-107) H 02/13/18 06:30 Carbon Dioxide 24 mmol/L (21-33) 02/13/18 06:30 Anion Gap 14 (10-20) 02/13/18 06:30 BUN 24 mg/dL (7-21) H 02/13/18 06:30 Creatinine 1.0 mg/dl (0.8-1.5) 02/13/18 06:30 Est GFR ( Amer) > 60 02/13/18 06:30 Est GFR (Non-Af Amer) > 60 02/13/18 06:30 POC Glucose (mg/dL) 190 mg/dL (65-110) H 02/13/18 12:01 Random Glucose 168 mg/dL (70-110) H 02/13/18 06:30 Calcium 8.8 mg/dL (8.4-10.5) 02/13/18 06:30 Total Bilirubin 1.6 mg/dL (0.2-1.3) H 02/13/18 06:30 GGT 431 U/L (8-78) H 02/13/18 06:00 AST 55 U/L (17-59) 02/13/18 06:30 ALT 42 U/L (7-56) 02/13/18 06:30 Alkaline Phosphatase 201 U/L (38-126) H 02/13/18 06:30 Lactate Dehydrogenase 658 U/L (333-699) 02/12/18 23:48 Total Creatine Kinase 112 U/L (35-230) 02/12/18 23:48 Troponin I < 0.01 ng/mL 02/12/18 23:48 Total Protein 7.0 g/dL (5.8-8.3) 02/13/18 06:30 Albumin 3.0 g/dL (3.0-4.8) 02/13/18 06:30 Globulin 4.1 gm/dL 02/13/18 06:30 Albumin/Globulin Ratio 0.7 (1.1-1.8) L 02/13/18 06:30 Lipase 501 U/L (23-300) H 02/12/18 23:48 - Hospital Course Hospital Course: 67 year old male with a past medical history significant for chronic liver disease secondary to alcohol abuse s/p TIPS, liver cirrhosis, IDDM2, HTN and HLD who presents with epigastric cramping that began the day before. He also endorses intermittent nausea with two episodes of NBNB vomiting associated with this pain. He denies previous episodes or any correlation to PO intake, body position or bowel movements. CT Abdomen/Pelvis and Abdominal U/S showed cholelithiasis and stable liver cirrhosis without any dilation of the CBD. Patient was started on IVF and pain medication. Upon evaluation in the morning patient stated that pain resolved as well as the n/v. GI was consulted, advanced diet, and recommended follow up with patient's GI/ job counselor. Surgery consulted, no surgical intervention was recommended. Patient tolerated heart health diet. He was instructed to follow up with outpatient GI. Discharge Exam - Head Exam Head Exam: ATRAUMATIC, NORMAL INSPECTION, NORMOCEPHALIC - Eye Exam Eye Exam: EOMI, Normal appearance - ENT Exam ENT Exam: Mucous Membranes Moist - Respiratory Exam Respiratory Exam: Clear to PA & Lateral, NORMAL BREATHING PATTERN, UNREMARKABLE. absent: Accessory Muscle Use, Chest Wall Tenderness, Decreased Breath Sounds, Rales, Rhonchi, Wheezes, Respiratory Distress - Cardiovascular Exam Cardiovascular Exam: REGULAR RHYTHM, +S1, +S2. absent: Bradycardia, Tachycardia , Diastolic murmur, Systolic Murmur - GI/Abdominal Exam GI & Abdominal Exam: Normal Bowel Sounds, Soft, Unremarkable. absent: Distended , Firm, Guarding, Hernia, Tenderness - Extremities Exam Extremities exam: normal inspection - Neurological Exam Neurological exam: Alert, CN II-XII Intact, Oriented x3 - Psychiatric Exam Psychiatric exam: Normal Affect, Normal Mood - Skin Skin Exam: Dry, Intact, Normal Color, Warm Discharge Plan - Discharge Medications Prescriptions: Ondansetron HCl [Zofran] 4 mg PO Q8 PRN #10 tablet PRN Reason: Nausea/Vomiting - Follow Up Plan Condition: STABLE Disposition: HOME/ ROUTINE Instructions: Acute Abdomen (Belly Pain), Adult (DC) Additional Instructions: follow up with primary care provider in 1 week follow up with job counselor, Dr. Bowman TAKE MEDICATION INSTRUCTED. REPORT ANY PAIN, NAUSEA, VOMITING REPORT TO MD OR GO TO ER. Referrals: Poli Powell Jr., MD [Primary Care Provider] - <Felix Mascorro - Last Filed: 02/15/18 16:00> Provider - Provider Date of Admission: 02/13/18 04:16 Attending physician: Mohamud Jorgensen MD Primary care physician: Poli Powell Jr, MD Hospital Course - Lab Results Lab Results: Most Recent Lab Values WBC 7.8 10^3/ul (4.5-11.0) 02/13/18 06:30 RBC 3.67 10^6/uL (3.5-6.1) 02/13/18 06:30 Hgb 12.7 g/dL (14.0-18.0) L 02/13/18 06:30 Hct 35.5 % (42.0-52.0) L 02/13/18 06:30 MCV 96.7 fl (80.0-105.0) 02/13/18 06:30 MCH 34.6 pg (25.0-35.0) 02/13/18 06:30 MCHC 35.8 g/dl (31.0-37.0) 02/13/18 06:30 RDW 13.2 % (11.5-14.5) 02/13/18 06:30 Plt Count 100 10^3/uL (120.0-450.0) L 02/13/18 06:30 MPV 11.5 fl (7.0-11.0) H 02/13/18 06:30 Gran % 71.0 % (50.0-68.0) H 02/13/18 06:30 Lymph % (Auto) 16.4 % (22.0-35.0) L 02/13/18 06:30 [place] % (Auto) 10.9 % (1.0-6.0) H 02/13/18 06:30 Eos % (Auto) 1.4 % (1.5-5.0) L 02/13/18 06:30 Baso % (Auto) 0.3 % (0.0-3.0) 02/13/18 06:30 Gran # 5.56 (1.4-6.5) 02/13/18 06:30 Lymph # (Auto) 1.3 (1.2-3.4) 02/13/18 06:30 [place] # (Auto) 0.9 (0.1-0.6) H 02/13/18 06:30 Eos # (Auto) 0.1 (0.0-0.7) 02/13/18 06:30 Baso # (Auto) 0.02 K/mm3 (0.0-2.0) 02/13/18 06:30 PT 13.8 SECONDS (9.4-12.5) H 02/12/18 23:48 INR 1.21 (0.93-1.08) H 02/12/18 23:48 APTT 27.1 Seconds (25.1-36.5) 02/12/18 23:48 Sodium 141 mmol/L (132-148) 02/13/18 06:30 Potassium 4.4 mmol/L (3.6-5.0) 02/13/18 06:30 Chloride 108 mmol/L (98-107) H 02/13/18 06:30 Carbon Dioxide 24 mmol/L (21-33) 02/13/18 06:30 Anion Gap 14 (10-20) 02/13/18 06:30 BUN 24 mg/dL (7-21) H 02/13/18 06:30 Creatinine 1.0 mg/dl (0.8-1.5) 02/13/18 06:30 Est GFR ( Amer) > 60 02/13/18 06:30 Est GFR (Non-Af Amer) > 60 02/13/18 06:30 POC Glucose (mg/dL) 190 mg/dL (65-110) H 02/13/18 12:01 Random Glucose 168 mg/dL (70-110) H 02/13/18 06:30 Calcium 8.8 mg/dL (8.4-10.5) 02/13/18 06:30 Total Bilirubin 1.6 mg/dL (0.2-1.3) H 02/13/18 06:30 GGT 431 U/L (8-78) H 02/13/18 06:00 AST 55 U/L (17-59) 02/13/18 06:30 ALT 42 U/L (7-56) 02/13/18 06:30 Alkaline Phosphatase 201 U/L (38-126) H 02/13/18 06:30 Lactate Dehydrogenase 658 U/L (333-699) 02/12/18 23:48 Total Creatine Kinase 112 U/L (35-230) 02/12/18 23:48 Troponin I < 0.01 ng/mL 02/12/18 23:48 Total Protein 7.0 g/dL (5.8-8.3) 02/13/18 06:30 Albumin 3.0 g/dL (3.0-4.8) 02/13/18 06:30 Globulin 4.1 gm/dL 02/13/18 06:30 Albumin/Globulin Ratio 0.7 (1.1-1.8) L 02/13/18 06:30 Lipase 501 U/L (23-300) H 02/12/18 23:48 Attending/Attestation - Attestation I have personally seen and examined this patient.: Yes I have fully participated in the care of the patient.: Yes I have reviewed all pertinent clinical information, including history, physical exam and plan: Yes Notes (Text): 02/15/18 15:56 Medical record note made by the resident after discussion with my direction and input after the patient was personally seen and examined by me. I have reviewed the chart and agree that the record accurately reflects by personal performance of the history, physical exam, data review, and medical decision-making, in the course for the patient. I have also personally directed the plan of care. 67 year old male with a past medical history significant for chronic liver disease secondary to alcohol abuse , liver cirrhosis,,s/p TIPS, IDDM2 and HTN wasa dmitted with epigastric cramping associated with intermittent nausea with two episodes of NBNB vomiting associated with this pain. CT Abdomen/Pelvis and Abdominal U/S showed cholelithiasis and stable liver cirrhosis without any dilation of the CBD. Patient was started on IVF and pain medication. Upon evaluation in the morning patient stated that pain resolved as well as the nausea and vomiting was improved.Patient was evaluated by GI and surgery. ( GI was consulted noted , advanced diet, and recommended follow up with patient's GI / job counselor) Surgery consulted noted , no surgical intervention was recommended. Patient tolerated heart health diet. He was instructed to follow up with outpatient GI. Management plan was discussed in detail with patient. Education was provided.
== END 2018-02-13 15:35 | disposition home or self-care (01) ==
LOC: ED 23:20 → ERH 02-13 04:16 → 3RNO 02-13 05:04
PROVIDERS: ADMIT Internal Medicine; ATTEND Internal Medicine
DX: K80.20 Calculus of gallbladder without cholecystitis without obstruction (principal); K70.30 Alcoholic cirrhosis of liver without ascites; I85.00 Esophageal varices without bleeding; E78.5 Hyperlipidemia, unspecified; E11.9 Type 2 diabetes mellitus without complications; F10.10 Alcohol abuse, uncomplicated; K76.6 Portal hypertension; I10 Essential (primary) hypertension; Z79.4 Long term (current) use of insulin
CPT/HCPCS: 36415; 71045; 74177; 76700; 80053; 82550; 82948; 82977; 83615; 83690; 84484; 85025; 85027; 85610; 85730; 93005; 96372; 96374; 96375; 96376; 99284; C9113; G0378; J1644; J2270; J2405; J7030; Q9967

== ENCOUNTER 2018-09-20 10:40 | Outpatient (CLI) | payer MEDICARE, OTHER | END 2018-09-20 10:41 | disposition home or self-care (01) | LOC: RAD 10:40 ==